=== PATIENT | female | born 1965 | race Caucasian/White ===

== ENCOUNTER 2022-03-29 19:30 | Emergency (ER) | payer OTHER ==
[2022-03-29 19:43] VITALS: BP 118/71; PULSE 74; RESP 16; TEMP 98.4; BMI 34.2
[2022-03-29] MEDS ORDERED: IBUPROFEN 400 MG TABLET (FP) PO ONE ×2 (20:07→20:11)
== END 2022-03-29 20:21 | disposition home or self-care (01) ==
LOC: FER 19:30
DX: M79.10 Myalgia, unspecified site (principal); W01.0XXA Fall on same level from slipping, tripping and stumbling without subsequent striking against object, initial encounter
CPT/HCPCS: 99283-25